=== PATIENT | male | born 2000 | race Caucasian/White ===

== ENCOUNTER 2023-04-19 15:42 | Day surgery (SDC) | payer OTHER, SELFPAY ==
[~2023-04-19] VITALS: Ht 177.8 cm; Wt 90.5 kg
[2023-04-19] MEDS ORDERED: ONDANSETRON 4MG 2ML VIAL ONE (16:48)
[2023-04-19] MEDS ORDERED: MIDAZOLAM INJ 2MG/2ML VIAL ONE (16:48)
[2023-04-19] MEDS ORDERED: fentaNYL 100 MCG/2 ML INJECTION ONE (16:48)
[2023-04-19] MEDS ORDERED: propofoL 200 MG/20 ML VIAL ONE (16:48)
[2023-04-19] MEDS ORDERED: ACETAMINOPHEN 1000MG 100ML IV BAG ONE (16:48)
[2023-04-19] MEDS ORDERED: KETOROLAC 60MG 2ML VIAL ONE (16:48)
[2023-04-19] MEDS ORDERED: LIDOCAINE 2% 100MG/5ML SDV (FOR ANES.) ONE (16:48)
[2023-04-19 16:49] LABS: BASO % 0.2 % (0.0-1.0); EOS % 0.1 % (0.0-3.0); HEMATOCRIT 45.3 % (42.0-52.0); HEMOGLOBIN 15.7 g/dl (13.5-17.5); LYMPH # 1.1 10^3/uL (1.5-5.0); LYMPH % 7.2 % (24.0-44.0); MEAN CORPUSCULAR HGB CONC 34.7 g/dl (32.0-36.5); MEAN CORPUSCULAR VOLUME 83.7 fl (80.0-96.0); MONO # 0.8 10^3/uL (0.0-0.8); MONO % 5.1 % (2.0-8.0); NEUTROPHILS # 13.1 10^3/uL (1.5-8.5); NEUTROPHILS % 86.9 % (36.0-66.0); PLATELET COUNT, AUTOMATED 278 10^3/uL (150-450); RED BLOOD COUNT 5.41 10^6/uL (4.30-6.10); WHITE BLOOD COUNT 15.1 10^3/uL (4.0-10.0)
[2023-04-19] MEDS ORDERED: CLINDAMYCIN 900MG/6ML VIAL ONE (17:05)
[2023-04-19] MEDS ORDERED: ROCURONIUM BROMIDE 50MG/5ML VIAL ONE (17:09)
[2023-04-19] MEDS ORDERED: HYDROMORPHONE HCL 0.5 MG/ 0.5 ML SYRINGE IV PRN (17:50)
[2023-04-19] MEDS ORDERED: oxyCODONE 5MG TAB PO PRN (17:50)
[2023-04-19] MEDS ORDERED: LR 1,000 ML IV SCH (17:50)
[2023-04-19] MEDS ORDERED: ONDANSETRON 4MG 2ML VIAL IV PRN (17:50)
[2023-04-19] MEDS ORDERED: fentaNYL 100 MCG/2 ML INJECTION IV PRN (17:50)
[2023-04-19] MEDS ORDERED: HYDR-3713 PO (17:53)
[2023-04-19] MEDS ORDERED: BACT800T5 PO (17:53)
[2023-04-19] MEDS ORDERED: CLINDAMYCIN 900MG/6ML VIAL As Ordered ONE (18:07)
[2023-04-19 19:00] VITALS: BP 132/79; TEMP 97.4; O2SAT 100
== END 2023-04-19 19:00 | disposition home or self-care (01) ==
LOC: M ED 15:42 → M SDC 15:43
PROVIDERS: ATTEND Urology
DX: N44.00 Torsion of testis, unspecified (principal); Z88.0 Allergy status to penicillin; Z87.891 Personal history of nicotine dependence
CPT/HCPCS: 54512; 54600; 76870; 80047; 85025; 87635; 93976; 99284; J0131; J0665; J0736; J1100; J1885; J2250; J2405; J3010